=== PATIENT | female | born 1940 | race Two or more races ===

== ENCOUNTER 2016-10-31 12:41 | Inpatient (IN) | payer MEDICAID ==
[~2016-10-31] VITALS: Ht 157.5 cm; Wt 61.2 kg
[~2016-10-31 12:41] MED LIST: ASPI81TA2 PO; ATEN-170; BISO5TAB2 PO; LISI1TAB11 PO; PANT40TA2 PO
[2016-10-31 13:22] LABS: BASOPHILS # (AUTO) 0.1 /CMM (0.0-0.2); DIFF TOTAL % 100 %; EOSINOPHILS # (AUTO) 0.1 /CMM (0.0-0.7); EOSINOPHILS % (AUTO) 0.6 % (0.0-6.0); HEMATOCRIT 35 % (33-45); HEMOGLOBIN 11.7 g/dL (11.5-14.8); LYMPHOCYTES # (AUTO) 3.5 /CMM (0.8-4.8); LYMPHOCYTES % (AUTO) 39.2 % (20.0-44.0); MEAN CORPUSCULAR HEMOGLOBIN 30 PG (26.0-33.0); MEAN CORPUSCULAR HGB CONC 34 g/dl (31.0-36.0); MEAN CORPUSCULAR VOLUME 88 fL (82-100); MONOCYTES # (AUTO) 0.6 /CMM (0.1-1.30); MONOCYTES % (AUTO) 6.6 % (2.0-12.0); NEUTROPHILS # (AUTO) 4.7 /CMM (1.8-8.9); NEUTROPHILS % (AUTO) 52.6 % (43.0-81.0); PLATELET COUNT (AUTO) 295 /CMM (150-450); RED BLOOD CELL COUNT(AUTO) 3.94 MIL/uL (4.0-5.2)
[2016-10-31 13:36] LABS: INR 0.95 (0.87-1.13)
[2016-10-31 13:37] LABS: ALBUMIN 3.6 g/dL (3.4-5.0); BILIRUBIN,DIRECT 0.1 mg/dL (0.0-0.2); BILIRUBIN,TOTAL 0.4 mg/dL (0.2-1.0); CALCIUM, SERUM 9.2 mg/dL (8.5-10.1); CREATININE 0.9 mg/dL (0.6-1.3); INDIRECT BILIRUBIN 0.3 mg/dL (0.0-1.1); POTASSIUM 3.6 mmol/L (3.5-5.1); TOTAL PROTEIN, SERUM 7.5 g/dL (6.4-8.2)
[2016-10-31] MEDS ORDERED: ONDANSETRON HCL/PF 4 MG/2 ML VIAL ONE (13:57)
[2016-10-31] MEDS ORDERED: ONDANSETRON HCL/PF 4 MG/2 ML VIAL IV ONE (14:00)
[2016-10-31 14:16] LABS: KETONES,URINE Negative (NEGATIVE); LEUKOCYTE ESTERASE ,URINE Large (NEGATIVE); PH,URINE 6.5 (5.0-8.0)
[2016-10-31 14:24] LABS: ADD UA MICROSCOPIC YES
[2016-10-31 14:28] LABS: ADD URINE CULTURE NO
[2016-10-31 15:21] LABS: KETONES,URINE Negative (NEGATIVE); LEUKOCYTE ESTERASE ,URINE Negative (NEGATIVE); PH,URINE 5.5 (5.0-8.0)
[2016-10-31 15:33] LABS: ADD UA MICROSCOPIC YES
[2016-10-31 15:43] LABS: ADD URINE CULTURE NO; WBC,URINE 0-2 /HPF (0-3)
[2016-10-31 16:00] VITALS: BP 142/71
[2016-10-31] MEDS ORDERED: ASPIRIN 325 MG TABLET PO ONE (16:00)
[2016-10-31] MEDS ORDERED: UNK CHOLESTEROL MED (16:09)
[2016-10-31] MEDS ORDERED: ASPIRIN 325 MG TABLET ONE (16:09)
[2016-10-31] MEDS ORDERED: ENAL5TAB PO (16:09)
[2016-10-31] MEDS ORDERED: ASPI81TA2 PO (16:09)
[2016-10-31 17:25] VITALS: BP 142/71
[2016-10-31] MEDS ORDERED: ACETAMINOPHEN 325 MG TABLET PO PRN (17:30)
[2016-10-31] MEDS ORDERED: ZOLPIDEM TARTRATE 5 MG TABLET PO PRN (17:30)
[2016-10-31] MEDS ORDERED: MAG HYDROX/AL HYDROX/SIMETH 30 ML UDC PO PRN (17:30)
[2016-10-31] MEDS ORDERED: HYDROCODONE/APAP 5/325MG 1 EACH TABLET PO PRN (17:30)
[2016-10-31] MEDS ORDERED: Z GUARD REMEDY 2 OZ OINT TP PRN (17:30)
[2016-10-31] MEDS ORDERED: ONDANSETRON HCL/PF 4 MG/2 ML VIAL IVP PRN (17:30)
[2016-10-31] MEDS ORDERED: MAGNESIUM HYDROXIDE 30 ML UDC PO PRN (17:30)
[2016-10-31 17:41] LABS: THYROID STIMULATING HORMONE 1.378 uIU/mL (0.358-3.74)
[2016-10-31] MEDS: POTASSIUM CHLORIDE 20 MEQ TAB.PRT.SR PO SCH ×3 (17:49→21:05)
[2016-10-31] MEDS ORDERED: IV SET PRIMARY PUMP SET 1 EA INFUS.SET MC ONE (18:03)
[2016-10-31] MEDS: IV NS 0.9% 1,000 ML IV PRN (18:40)
[2016-10-31 18:53] LABS: PHOSPHORUS 3.3 mg/dL (2.5-4.9)
[2016-10-31 20:00] VITALS: BP 133/78
[2016-10-31 20:14] VITALS: BP 133/78
[2016-10-31] MEDS: CARVEDILOL 6.25 MG TABLET PO SCH (21:04)
[2016-10-31] MEDS: ENOXAPARIN SODIUM 40 MG/0.4 ML DISP.SYRIN SQ SCH (21:10)
[2016-11-01] VITALS (9 sets, daily range): BP systolic 109–165; BP diastolic 58–73
[2016-11-01] MEDS: IV NS 0.9% 1,000 ML IV PRN (04:35)
[2016-11-01 06:56] LABS: BASOPHILS # (AUTO) 0.1 /CMM (0.0-0.2); BASOPHILS % (AUTO) 0.7 % (0.0-2.0); DIFF TOTAL % 100 %; EOSINOPHILS % (AUTO) 0.5 % (0.0-6.0); HEMATOCRIT 30 % (33-45); HEMOGLOBIN 10.1 g/dL (11.5-14.8); LYMPHOCYTES % (AUTO) 38.1 % (20.0-44.0); MEAN CORPUSCULAR HEMOGLOBIN 29 PG (26.0-33.0); MEAN CORPUSCULAR HGB CONC 33 g/dl (31.0-36.0); MEAN CORPUSCULAR VOLUME 88 fL (82-100); MONOCYTES # (AUTO) 0.7 /CMM (0.1-1.30); MONOCYTES % (AUTO) 8.4 % (2.0-12.0); NEUTROPHILS # (AUTO) 4.1 /CMM (1.8-8.9); NEUTROPHILS % (AUTO) 52.3 % (43.0-81.0); PLATELET COUNT (AUTO) 265 /CMM (150-450); RED BLOOD CELL COUNT(AUTO) 3.44 MIL/uL (4.0-5.2); WHITE BLOOD COUNT (AUTO) 7.8 K/uL (4.3-11.0)
[2016-11-01 07:07] LABS: TROPONIN I < 0.017 ng/mL (0.00-0.056)
[2016-11-01 07:10] LABS: ALANINE AMINOTRANSFERASE 15 U/L (12-78); ALBUMIN 2.9 g/dL (3.4-5.0); ANION GAP 11 (5-14); ASPARTATE AMINOTRANSFERASE 11 U/L (15-37); BILIRUBIN,TOTAL 0.5 mg/dL (0.2-1.0); CALCIUM, SERUM 8.8 mg/dL (8.5-10.1); CARBON DIOXIDE 26 mmol/L (21-32); CHLORIDE 109 mmol/L (98-107); CREATININE 0.9 mg/dL (0.6-1.3); GLUCOSE 92 mg/dL (74-106); PHOSPHORUS 3.5 mg/dL (2.5-4.9); POTASSIUM 4.2 mmol/L (3.5-5.1); SODIUM SERUM 142 mmol/L (136-145); TOTAL PROTEIN, SERUM 6.3 g/dL (6.4-8.2); UREA NITROGEN, BLOOD 16 mg/dL (7-18)
[2016-11-01] MEDS: PANTOPRAZOLE 40 MG TABLET.DR PO SCH (08:17)
[2016-11-01] MEDS: ATORVASTATIN 10 MG TABLET PO SCH (08:17)
[2016-11-01] MEDS: CARVEDILOL 6.25 MG TABLET PO SCH ×2 (08:18→22:00)
[2016-11-01] MEDS: ASPIRIN 81 MG TAB.CHEW PO SCH (08:18)
[2016-11-01] MEDS: ENALAPRIL MALEATE (5 MG) 5 MG TABLET PO SCH (08:28)
[2016-11-01] MEDS ORDERED: PANTOPRAZOLE 40 MG/PACK PACK NG SCH (09:00)
[2016-11-01] MEDS ORDERED: ASPIRIN 81 MG TAB.CHEW PO SCH (09:00)
[2016-11-01] MEDS: ENOXAPARIN SODIUM 40 MG/0.4 ML DISP.SYRIN SQ SCH (22:03)
[2016-11-02] VITALS: BP 115/60
[2016-11-02 08:00] VITALS: BP 155/74
[2016-11-02] MEDS ORDERED: REGADENOSON 0.4 MG/5 ML DISP.SYRIN IVP ONE (08:00)
[2016-11-02 08:02] VITALS: BP 155/74
[2016-11-02] MEDS: ASPIRIN 81 MG TAB.CHEW PO SCH (12:24)
[2016-11-02] MEDS: PANTOPRAZOLE 40 MG TABLET.DR PO SCH (12:24)
[2016-11-02] MEDS: ATORVASTATIN 10 MG TABLET PO SCH (12:24)
[2016-11-02 12:28] VITALS: BP 138/72
[2016-11-02] MEDS: ENALAPRIL MALEATE (5 MG) 5 MG TABLET PO SCH (12:28)
[2016-11-02] MEDS: CARVEDILOL 6.25 MG TABLET PO SCH (12:28)
[2016-11-02] MEDS ORDERED: CARV6.252 PO (14:32)
[2016-11-02] MEDS ORDERED: ATOR10TA PO (14:32)
== END 2016-11-02 15:15 | disposition home or self-care (01) | DRG 203 ==
LOC: ER 12:43 → TELE 16:31 → MED 11-02 05:08
DX: M94.0 Chondrocostal junction syndrome [Tietze] (principal); N17.0 Acute kidney failure with tubular necrosis; I24.9 Acute ischemic heart disease, unspecified; I10 Essential (primary) hypertension; K21.9 Gastro-esophageal reflux disease without esophagitis; K44.9 Diaphragmatic hernia without obstruction or gangrene; Z79.82 Long term (current) use of aspirin; D64.9 Anemia, unspecified; E78.5 Hyperlipidemia, unspecified
CPT/HCPCS: 36415; 71010-TC; 80048-TC; 80053-TC; 80061-TC; 80076-TC; 81000-TC; 82306; 82728-TC; 83540-TC; 83690-TC; 83735-TC; 84100-TC; 84439-TC; 84443-TC; 84484-TC; 85025-TC; 85730-TC; 93307-TC; A4606; A9502; J1650; J2405; J7030; Z7610

== ENCOUNTER 2017-02-01 09:52 | Emergency (ER) | payer MEDICAID ==
[~2017-02-01] VITALS: Ht 137.2 cm; Wt 53.5 kg
[~2017-02-01 09:52] MED LIST changes: -ATEN-170; +ATOR10TA PO; -BISO5TAB2 PO; +CARV6.252 PO; +ENAL5TAB PO; -LISI1TAB11 PO; -PANT40TA2 PO
--- NOTE | 2017-02-01 09:52 | NUR ---
BIB FAMILY C/O R KNEE PAIN AND SWELLING X 1 MONTH, NO FALL OR INJURY. NAD NOTED. SON AT BEDSIDE. VSS. RR EVEN AND UNLABORED. MD AT BEDSIDE FOR EVAL.
[2017-02-01] MEDS ORDERED: ACETAMINOPHEN ES 500 MG TABLET ONE (10:13)
[2017-02-01] MEDS ORDERED: TRAMADOL HCL 50 MG TABLET ONE (10:13)
[2017-02-01] MEDS ORDERED: ACETAMINOPHEN ES 500 MG TABLET PO ONE (10:30)
[2017-02-01] MEDS ORDERED: TRAMADOL HCL 50 MG TABLET PO ONE (10:30)
--- NOTE | 2017-02-01 11:51 | NUR ---
Patient discharged to home in stable condition. Written and verbal after care instructions given. Patient verbalizes understanding of instruction.
[2017-02-01 11:52] VITALS: BP 142/78
== END 2017-02-01 11:53 | disposition home or self-care (01) ==
LOC: ER 09:53
DX: M25.561 Pain in right knee (principal); I10 Essential (primary) hypertension; Z79.82 Long term (current) use of aspirin
CPT/HCPCS: 73564-TC; A4606; Z7610

== ENCOUNTER 2020-03-07 14:42 | Emergency (ER) | payer MEDICAID ==
[~2020-03-07] VITALS: Ht 157.5 cm; Wt 58.1 kg
[~2020-03-07 14:42] MED LIST changes: +ASPI-1169 PO; -ASPI81TA2 PO
--- NOTE | 2020-03-07 14:45 | NUR ---
MELINDA WILKINSON 89[facility] from Home "Been having high BP reading x5days.". On room air, breathing evenly and unlabored. connected to the monitor and pulse ox. kept comfortable, will continue to monitor accordingly.
[2020-03-07] MEDS ORDERED: CLONIDINE HCL 0.1 MG TABLET PO ONE ×2 (15:00→16:00)
[2020-03-07] MEDS ORDERED: IBUPROFEN 600 MG TABLET PO ONE ×2 (15:00→15:05)
[2020-03-07] MEDS ORDERED: CLONIDINE HCL 0.1 MG TABLET ONE ×2 (15:05→15:43)
[2020-03-07 18:38] VITALS: BP 146/81
--- NOTE | 2020-03-07 18:38 | NUR ---
Patient discharged to home in stable condition. Written and verbal after care instructions given. Patient verbalizes understanding of instruction.
== END 2020-03-07 18:38 | disposition home or self-care (01) ==
LOC: ER 14:48
DX: I10 Essential (primary) hypertension (principal); Z79.82 Long term (current) use of aspirin; Z79.899 Other long term (current) drug therapy

== ENCOUNTER 2020-03-12 08:05 | Emergency (ER) | payer MEDICAID ==
[~2020-03-12] VITALS: Ht 152.4 cm; Wt 57.6 kg
--- NOTE | 2020-03-12 08:05 | NUR ---
PT BIB FAMILY C/O DIZZINESS AND HEADACHE. PT IS AAOX3 [place] SPEAKING ONLY, NOT IN RESPIRATORY DISTRESS, HOOKED TO SUPERVISOR OFFSET PLATE PREPARATION, KEPT RESTED AND COMFORTABLE. WILL CONTINUE TO MONITOR.
--- NOTE | 2020-03-12 08:20 | NUR ---
friend abad left contact # [phone]
--- NOTE | 2020-03-12 08:25 | NUR ---
PT IV LINE ESTABLISHED BLOOD DRAWN AND SENT TO LAB.
--- NOTE | 2020-03-12 08:30 | NUR ---
SEEN AND EXAMINED BY .
[2020-03-12] MEDS ORDERED: LATA2.5D7 OP (08:34)
[2020-03-12] MEDS ORDERED: CLON0.1T PO (08:34)
[2020-03-12] MEDS ORDERED: CHOL20004 PO (08:34)
[2020-03-12] MEDS ORDERED: MIRT7.5T10 PO (08:34)
[2020-03-12] MEDS ORDERED: SIMV-46 PO (08:34)
[2020-03-12] MEDS ORDERED: OMEP20CA15 PO (08:34)
[2020-03-12] MEDS ORDERED: ASPI-1152 PO (08:34)
[2020-03-12] MEDS ORDERED: LOSA50TA39 PO (08:34)
--- NOTE | 2020-03-12 08:58 | NUR ---
URINE SPECIMEN COLLECTED AND SENT TO LAB.
[2020-03-12 09:15] LABS: CALCIUM, SERUM 9.5 mg/dL (8.5-10.1); CARBON DIOXIDE 30 mmol/L (21-32); CHLORIDE 97 mmol/L (98-107); GLUCOSE 106 mg/dL (74-106); POTASSIUM 4.2 mmol/L (3.5-5.1); SODIUM SERUM 133 mmol/L (136-145); UREA NITROGEN, BLOOD 10 mg/dL (7-18)
[2020-03-12 09:21] LABS: ALANINE AMINOTRANSFERASE 16 U/L (12-78); ALBUMIN 3.6 g/dL (3.4-5.0); ALKALINE PHOSPHATASE 94 U/L (46-116); ASPARTATE AMINOTRANSFERASE 19 U/L (15-37); BILIRUBIN,DIRECT 0.1 mg/dL (0.0-0.2); BILIRUBIN,TOTAL 0.5 mg/dL (0.2-1.0); TOTAL PROTEIN, SERUM 7.9 g/dL (6.4-8.2)
[2020-03-12 09:35] LABS: APPEARANCE,URINE CLEAR (CLEAR); BILIRUBIN,URINE NEGATIVE (NEGATIVE); BLOOD, URINE TRACE-INTA Ery/uL (NEGATIVE); COLOR,URINE YELLOW (YELLOW); KETONES,URINE NEGATIVE (NEGATIVE); LEUKOCYTE ESTERASE ,URINE LARGE (NEGATIVE); NITRITE, URINE NEGATIVE (NEGATIVE); PROTEIN,URINE NEGATIVE (NEGATIVE); UGLUCOSE NEGATIVE (NEGATIVE); UROBILINOGEN,URINE 0.2 EU/dL (0.2)
[2020-03-12 09:42] LABS: BASOPHILS % (AUTO) 0.5 % (0.0-2.0); EOSINOPHILS % (AUTO) 0.9 % (0.0-6.0); HEMATOCRIT 38 % (33-45); HEMOGLOBIN 12.7 g/dL (11.5-14.8); MEAN CORPUSCULAR HGB CONC 33 g/dl (31.0-36.0); MEAN CORPUSCULAR VOLUME 89 fL (82-100); MONOCYTES # (AUTO) 0.7 /CMM (0.1-1.30); MONOCYTES % (AUTO) 9.4 % (2.0-12.0); NEUTROPHILS # (AUTO) 3.2 /CMM (1.8-8.9); NEUTROPHILS % (AUTO) 46.2 % (43.0-81.0); PLATELET COUNT (AUTO) 325 /CMM (150-450); RED BLOOD CELL COUNT(AUTO) 4.27 MIL/uL (4.0-5.2); WHITE BLOOD COUNT (AUTO) 6.9 K/uL (4.3-11.0)
[2020-03-12 09:52] LABS: BACTERIA,URINE Moderate /HPF (None Seen); SQUAMOUS EPITHELIAL CELL,UR Moderate /HPF (None Seen)
--- NOTE | 2020-03-12 10:10 | NUR ---
MINGO WAS CONTACTED SHE WILL BE HERE IN 40 MINS.
--- NOTE | 2020-03-12 10:22 | NUR ---
IV removed. Catheter intact and site benign. Pressure and 4x4 applied to site. No bleeding noted. Patient discharged to home in stable condition. Written and verbal after care instructions given. Patient verbalizes understanding of instruction.
[2020-03-12 10:23] VITALS: BP 149/88
== END 2020-03-12 10:24 | disposition home or self-care (01) ==
LOC: ER 08:05
DX: R42 Dizziness and giddiness (principal); N39.0 Urinary tract infection, site not specified; I10 Essential (primary) hypertension; Z79.899 Other long term (current) drug therapy; Z79.82 Long term (current) use of aspirin
CPT/HCPCS: 36415; 70450-TC; 71045-TC; 80048-TC; 80076-TC; 81000-TC; 84484-TC; 85025-TC; 85730-TC; 87086-TC

== ENCOUNTER 2022-05-12 13:59 | Emergency (ER) | payer MEDICAID, OTHER ==
[~2022-05-12] VITALS: Ht 152.4 cm; Wt 43.1 kg
[~2022-05-12 13:59] MED LIST changes: -ASPI-1169 PO; +ASPI-1420 PO; -ATOR10TA PO; -CARV6.252 PO; +CHOL200010 PO; +CLON0.1T PO; -ENAL5TAB PO; +LATA2.5D15 OP; +LOSA50TA39 PO; +MIRT7.5T10 PO; +OMEP20CA15 PO; +SIMV-46 PO
--- NOTE | 2022-05-12 14:16 | NUR ---
To ER bed 7, BIB Family "She has been having HBP last 4days. Taking meds", aaox3, breathing even and non labored, connected to monitor
[2022-05-12] MEDS ORDERED: CARV6.252 PO (14:35)
[2022-05-12] MEDS ORDERED: CLONIDINE HCL 0.1 MG TABLET PO ONE (15:00)
[2022-05-12] MEDS ORDERED: CARVEDILOL 6.25 MG TABLET PO ONE (15:00)
[2022-05-12] MEDS ORDERED: CARVEDILOL 12.5 MG TABLET ONE (15:22)
[2022-05-12] MEDS ORDERED: CLONIDINE HCL 0.1 MG TABLET ONE (15:22)
--- NOTE | 2022-05-12 16:21 | NUR ---
Patient discharged to home in stable condition. Written and verbal after care instructions given. Patient verbalizes understanding of instruction.
[2022-05-12 16:30] VITALS: BP 136/68
== END 2022-05-12 16:30 | disposition home or self-care (01) ==
LOC: ER 14:05
DX: I10 Essential (primary) hypertension (principal); Z79.899 Other long term (current) drug therapy

== ENCOUNTER 2022-05-23 12:51 | Emergency (ER) | payer MEDICAID ==
[~2022-05-23] VITALS: Ht 152.4 cm; Wt 43.1 kg
[~2022-05-23 12:51] MED LIST changes: -ASPI-1420 PO; +CARV6.252 PO; -CHOL200010 PO; -LATA2.5D15 OP; -MIRT7.5T10 PO; -OMEP20CA15 PO; -SIMV-46 PO
[2022-05-23] MEDS ORDERED: ONDANSETRON HCL/PF 4 MG/2 ML VIAL ONE (13:10)
[2022-05-23 13:23] LABS: BASOPHILS % (AUTO) 0.3 % (0.0-2.0); EOSINOPHILS % (AUTO) 0.2 % (0.0-6.0); HEMATOCRIT 39 % (33-45); HEMOGLOBIN 13.1 g/dL (11.5-14.8); LYMPHOCYTES % (AUTO) 20.3 % (20.0-44.0); MEAN CORPUSCULAR HGB CONC 34 g/dl (31.0-36.0); MEAN CORPUSCULAR VOLUME 87 fL (82-100); MONOCYTES # (AUTO) 0.6 K/uL (0.1-1.30); MONOCYTES % (AUTO) 5.8 % (2.0-12.0); NEUTROPHILS # (AUTO) 7.1 K/uL (1.8-8.9); NEUTROPHILS % (AUTO) 73.4 % (43.0-81.0); PLATELET COUNT (AUTO) 302 K/uL (150-450); RED BLOOD CELL COUNT(AUTO) 4.43 MIL/uL (4.0-5.2); WHITE BLOOD COUNT (AUTO) 9.7 K/uL (4.3-11.0)
[2022-05-23] MEDS ORDERED: LATA2.5D15 EACHEYE (13:30)
[2022-05-23] MEDS ORDERED: ONDANSETRON HCL/PF 4 MG/2 ML VIAL IVP ONE (13:30)
[2022-05-23] MEDS ORDERED: AMLO-213 PO (13:30)
[2022-05-23] MEDS ORDERED: LOSA1TAB36 PO (13:30)
[2022-05-23] MEDS ORDERED: OMEP20CA15 PO (13:30)
[2022-05-23 13:36] LABS: ALANINE AMINOTRANSFERASE 15 U/L (12-78); ALBUMIN 3.9 g/dL (3.4-5.0); ALKALINE PHOSPHATASE 82 U/L (46-116); ASPARTATE AMINOTRANSFERASE 17 U/L (15-37); BILIRUBIN,DIRECT 0.2 mg/dL (0.0-0.2); BILIRUBIN,TOTAL 0.7 mg/dL (0.2-1.0); CALCIUM, SERUM 9.7 mg/dL (8.5-10.1); CARBON DIOXIDE 33 mmol/L (21-32); CHLORIDE 89 mmol/L (98-107); CREATININE 0.9 mg/dL (0.6-1.3); GLUCOSE 103 mg/dL (74-106); LIPASE 90 U/L (73-393); POTASSIUM 3.5 mmol/L (3.5-5.1); SODIUM SERUM 128 mmol/L (136-145); TOTAL PROTEIN, SERUM 8.4 g/dL (6.4-8.2); UREA NITROGEN, BLOOD 8 mg/dL (7-18)
[2022-05-23 15:46] LABS: BILIRUBIN,URINE NEGATIVE (NEGATIVE); COLOR,URINE YELLOW (YELLOW); LEUKOCYTE ESTERASE ,URINE NEGATIVE (NEGATIVE); NITRITE, URINE NEGATIVE (NEGATIVE); PROTEIN,URINE NEGATIVE (NEGATIVE); UGLUCOSE NEGATIVE (NEGATIVE); UROBILINOGEN,URINE 0.2 EU/dL (0.2)
[2022-05-23 17:19] LABS: BACTERIA,URINE RARE /HPF (None Seen); SQUAMOUS EPITHELIAL CELL,UR 0-2 /HPF (None Seen); WBC,URINE 0-2 /HPF (0-3)
[2022-05-23 21:13] VITALS: BP 146/81
== END 2022-05-23 22:00 | disposition short-term general hospital (02) ==
LOC: ER 12:54
DX: R42 Dizziness and giddiness (principal); R07.9 Chest pain, unspecified; I10 Essential (primary) hypertension; Z79.899 Other long term (current) drug therapy; Z20.822 Contact with and (suspected) exposure to COVID-19
CPT/HCPCS: 36415; 70450-TC; 71045-TC; 80048-TC; 80076-TC; 81001; 83690-TC; 84484-TC; 85025-TC; C9803; J2405

== ENCOUNTER 2023-04-04 17:12 | Inpatient (IN) | payer MEDICAID ==
[~2023-04-04] VITALS: Ht 147.3 cm; Wt 51.3 kg
[~2023-04-04 17:12] MED LIST changes: +AMLO-213 PO; +LATA2.5D15 EACHEYE; +LOSA1TAB36 PO; -LOSA50TA39 PO; +OMEP20CA15 PO
[2023-04-04 17:58] LABS: BASOPHILS # (AUTO) 0.1 K/uL (0.0-0.2); BASOPHILS % (AUTO) 0.8 % (0.0-2.0); EOSINOPHILS % (AUTO) 0.5 % (0.0-6.0); HEMATOCRIT 36 % (33-45); LYMPHOCYTES # (AUTO) 2.2 K/uL (0.8-4.8); LYMPHOCYTES % (AUTO) 32.5 % (20.0-44.0); MEAN CORPUSCULAR HEMOGLOBIN 30 PG (26.0-33.0); MEAN CORPUSCULAR HGB CONC 34 g/dl (31.0-36.0); MEAN CORPUSCULAR VOLUME 89 fL (82-100); MONOCYTES # (AUTO) 0.6 K/uL (0.1-1.30); MONOCYTES % (AUTO) 8.4 % (2.0-12.0); NEUTROPHILS # (AUTO) 3.9 K/uL (1.8-8.9); NEUTROPHILS % (AUTO) 57.8 % (43.0-81.0); PLATELET COUNT (AUTO) 309 K/uL (150-450); RED BLOOD CELL COUNT(AUTO) 3.98 MIL/uL (4.0-5.2); RED CELL DISTRIBUTION WIDTH 13.1 % (11.5-15.0); WHITE BLOOD COUNT (AUTO) 6.7 K/uL (4.3-11.0)
[2023-04-04] MEDS ORDERED: LOSA25TA27 PO (18:03)
[2023-04-04] MEDS ORDERED: TRAZ-182 PO (18:03)
[2023-04-04] MEDS ORDERED: ROSU10TA29 PO (18:03)
[2023-04-04 18:24] LABS: CALCIUM, SERUM 9.4 mg/dL (8.5-10.1); CARBON DIOXIDE 28 mmol/L (21-32); CHLORIDE 99 mmol/L (98-107); CREATININE 0.8 mg/dL (0.6-1.3); GLUCOSE 112 mg/dL (74-106); POTASSIUM 4.1 mmol/L (3.5-5.1); SODIUM SERUM 135 mmol/L (136-145); UREA NITROGEN, BLOOD 15 mg/dL (7-18)
[2023-04-04] MEDS ORDERED: CHOL100043 PO (18:27)
[2023-04-04] MEDS ORDERED: MAGN400T26 PO (18:27)
[2023-04-04] MEDS ORDERED: POTA99TA14 PO (18:27)
[2023-04-04 18:35] LABS: ALANINE AMINOTRANSFERASE 13 U/L (12-78); ALBUMIN 3.7 g/dL (3.4-5.0); ALKALINE PHOSPHATASE 80 U/L (46-116); ASPARTATE AMINOTRANSFERASE 14 U/L (15-37); BILIRUBIN,DIRECT 0.1 mg/dL (0.0-0.2); BILIRUBIN,TOTAL 0.3 mg/dL (0.2-1.0); LIPASE 108 U/L (73-393); NT-PRO BNP 149 pg/mL (0-125); TOTAL PROTEIN, SERUM 7.9 g/dL (6.4-8.2)
[2023-04-04 19:22] LABS: APPEARANCE,URINE CLEAR (CLEAR); BILIRUBIN,URINE NEGATIVE (NEGATIVE); BLOOD, URINE TRACE-INTA Ery/uL (NEGATIVE); COLOR,URINE YELLOW (YELLOW); KETONES,URINE NEGATIVE (NEGATIVE); LEUKOCYTE ESTERASE ,URINE NEGATIVE (NEGATIVE); NITRITE, URINE NEGATIVE (NEGATIVE); PROTEIN,URINE NEGATIVE (NEGATIVE); UGLUCOSE NEGATIVE (NEGATIVE); UROBILINOGEN,URINE 0.2 EU/dL (0.2)
[2023-04-04 20:21] LABS: ADD URINE CULTURE NO; BACTERIA,URINE Few /HPF (None Seen); RBC,URINE 0-2 /HPF (0-2); WBC,URINE NONE SEEN /HPF (0-3)
[2023-04-04] MEDS ORDERED: ACETAMINOPHEN 325 MG TABLET PO PRN (23:00)
[2023-04-04] MEDS ORDERED: ONDANSETRON HCL/PF 4 MG/2 ML VIAL IVP PRN (23:00)
[2023-04-04] MEDS ORDERED: CARVEDILOL 12.5 MG TABLET PO ONE (23:30)
[2023-04-04] MEDS: TRAZODONE 50 MG TABLET PO SCH (23:41)
[2023-04-04 23:43] VITALS: BP 151/71; TEMP 98.5; O2SAT 94
[2023-04-05] VITALS (7 sets, daily range): BP systolic 100–137; BP diastolic 54–68; TEMP 97.5–98.8; O2SAT 94–95
[2023-04-05] MEDS ORDERED: LATANOPROST EYE DROP 0.005% 2.5 ML BOTTLE ONE (00:32)
[2023-04-05] MEDS: IV NS 0.9% 1,000 ML IV PRN ×2 (00:57→14:11)
[2023-04-05] MEDS: LATANOPROST EYE DROP 0.005% 2.5 ML BOTTLE EACHEYE SCH ×2 (01:19→21:08)
[2023-04-05 05:52] LABS: BASOPHILS # (AUTO) 0.1 K/uL (0.0-0.2); BASOPHILS % (AUTO) 0.8 % (0.0-2.0); EOSINOPHILS # (AUTO) 0.1 K/uL (0.0-0.7); EOSINOPHILS % (AUTO) 0.8 % (0.0-6.0); HEMATOCRIT 33 % (33-45); HEMOGLOBIN 11.2 g/dL (11.5-14.8); LYMPHOCYTES % (AUTO) 44.9 % (20.0-44.0); MEAN CORPUSCULAR HEMOGLOBIN 30 PG (26.0-33.0); MEAN CORPUSCULAR HGB CONC 34 g/dl (31.0-36.0); MEAN CORPUSCULAR VOLUME 89 fL (82-100); MONOCYTES # (AUTO) 0.7 K/uL (0.1-1.30); NEUTROPHILS # (AUTO) 2.9 K/uL (1.8-8.9); NEUTROPHILS % (AUTO) 43.5 % (43.0-81.0); PLATELET COUNT (AUTO) 265 K/uL (150-450); RED BLOOD CELL COUNT(AUTO) 3.73 MIL/uL (4.0-5.2); RED CELL DISTRIBUTION WIDTH 13.5 % (11.5-15.0); WHITE BLOOD COUNT (AUTO) 6.7 K/uL (4.3-11.0)
[2023-04-05 06:16] LABS: CHOLESTEROL 204 mg/dL (<200); HDL CHOLESTEROL 53 mg/dL (40-60); LDL 126 mg/dL (0-99); TRIGLYCERIDES 72 mg/dL (30-150)
[2023-04-05 06:22] LABS: CALCIUM, SERUM 9.7 mg/dL (8.5-10.1); CARBON DIOXIDE 28 mmol/L (21-32); CHLORIDE 102 mmol/L (98-107); CREATININE 0.7 mg/dL (0.6-1.3); GLUCOSE 93 mg/dL (74-106); POTASSIUM 3.4 mmol/L (3.5-5.1); SODIUM SERUM 138 mmol/L (136-145); UREA NITROGEN, BLOOD 11 mg/dL (7-18)
[2023-04-05] MEDS: MAGNESIUM OXIDE 400 MG TABLET PO SCH (09:20)
[2023-04-05] MEDS: CARVEDILOL 6.25 MG TABLET PO SCH ×2 (09:21→20:55)
[2023-04-05] MEDS: AMLODIPINE BESYLATE 5 MG TABLET PO SCH (09:21)
[2023-04-05] MEDS: PANTOPRAZOLE 40 MG TABLET.DR PO SCH (09:22)
[2023-04-05] MEDS: CHOLECALCIFEROL (VITAMIN D 3) 400 UNIT TABLET PO SCH (09:22)
[2023-04-05] MEDS: LOSARTAN POTASSIUM 25 MG TABLET PO SCH (09:22)
[2023-04-05] MEDS ORDERED: POTASSIUM CHLORIDE 20 MEQ TAB.PRT.SR PO SCH (10:30)
[2023-04-05] MEDS: TRAZODONE 50 MG TABLET PO SCH (21:08)
[2023-04-06] MEDS: IV NS 0.9% 1,000 ML IV PRN (02:41)
[2023-04-06 03:30] VITALS: BP 139/75; TEMP 97.8; O2SAT 97
[2023-04-06 06:58] LABS: CALCIUM, SERUM 9.4 mg/dL (8.5-10.1); CREATININE 0.8 mg/dL (0.6-1.3); POTASSIUM 3.6 mmol/L (3.5-5.1)
[2023-04-06 07:00] VITALS: BP 126/65; TEMP 98.2; O2SAT 96
[2023-04-06] MEDS: PANTOPRAZOLE 40 MG TABLET.DR PO SCH (08:05)
[2023-04-06] MEDS: MAGNESIUM OXIDE 400 MG TABLET PO SCH (08:05)
[2023-04-06] MEDS: CHOLECALCIFEROL (VITAMIN D 3) 400 UNIT TABLET PO SCH (08:05)
[2023-04-06] MEDS: CARVEDILOL 6.25 MG TABLET PO SCH (08:05)
[2023-04-06 08:06] VITALS: BP 135/68
[2023-04-06] MEDS: LOSARTAN POTASSIUM 25 MG TABLET PO SCH (08:06)
[2023-04-06] MEDS: AMLODIPINE BESYLATE 5 MG TABLET PO SCH (08:06)
== END 2023-04-06 13:41 | disposition home or self-care (01) | DRG 203 ==
LOC: ER 17:15 → TELE 22:31
PROVIDERS: ADMIT Nurse Practitioner Acute Care; ATTEND Internal Medicine
DX: M94.0 Chondrocostal junction syndrome [Tietze] (principal); E87.1 Hypo-osmolality and hyponatremia; K29.70 Gastritis, unspecified, without bleeding; E86.1 Hypovolemia; E78.5 Hyperlipidemia, unspecified; I10 Essential (primary) hypertension; R53.1 Weakness; R51.9 Headache, unspecified; Z20.822 Contact with and (suspected) exposure to COVID-19; R07.81 Pleurodynia
CPT/HCPCS: 36415; 70450-TC; 71045-TC; 80048-TC; 80061-TC; 80076-TC; 81001; 83690-TC; 83735-TC; 83880; 84100-TC; 84484-TC; 85025-TC; 87086-TC; 92507-TC; 92526; 93307-TC; 97112-TC; 97116-TC; 97530-TC; 97535-TC; A4223; C9803; G0378; J7030

== ENCOUNTER 2024-03-09 16:16 | Emergency (ER) | payer MEDICAID ==
[~2024-03-09] VITALS: Ht 149.9 cm; Wt 45.4 kg
[~2024-03-09 16:16] MED LIST changes: +CHOL100043 PO; -CLON0.1T PO; -LOSA1TAB36 PO; +LOSA25TA27 PO; +MAGN400T26 PO; +POTA99TA14 PO; +TRAZ-182 PO
[2024-03-09 17:10] LABS: BASOPHILS # (AUTO) 0.1 K/uL (0.0-0.2); BASOPHILS % (AUTO) 0.6 % (0.0-2.0); EOSINOPHILS % (AUTO) 0.3 % (0.0-6.0); HEMATOCRIT 36 % (33-45); HEMOGLOBIN 12.2 g/dL (11.5-14.8); LYMPHOCYTES # (AUTO) 2.6 K/uL (0.8-4.8); LYMPHOCYTES % (AUTO) 30.6 % (20.0-44.0); MEAN CORPUSCULAR HEMOGLOBIN 30 PG (26.0-33.0); MEAN CORPUSCULAR HGB CONC 34 g/dl (31.0-36.0); MEAN CORPUSCULAR VOLUME 88 fL (82-100); MONOCYTES # (AUTO) 0.8 K/uL (0.1-1.30); MONOCYTES % (AUTO) 9.9 % (2.0-12.0); NEUTROPHILS # (AUTO) 4.9 K/uL (1.8-8.9); NEUTROPHILS % (AUTO) 58.6 % (43.0-81.0); PLATELET COUNT (AUTO) 364 K/uL (150-450); RED BLOOD CELL COUNT(AUTO) 4.02 MIL/uL (4.0-5.2); RED CELL DISTRIBUTION WIDTH 13.5 % (11.5-15.0); WHITE BLOOD COUNT (AUTO) 8.4 K/uL (4.3-11.0)
[2024-03-09 17:25] LABS: CALCIUM, SERUM 8.8 mg/dL (8.5-10.1); CARBON DIOXIDE 29 mmol/L (21-32); CHLORIDE 93 mmol/L (98-107); CREATININE 0.7 mg/dL (0.6-1.3); GLUCOSE 107 mg/dL (74-106); SODIUM SERUM 130 mmol/L (136-145); UREA NITROGEN, BLOOD 9 mg/dL (7-18)
[2024-03-09] MEDS ORDERED: FAMOTIDINE (20 MG) 20 MG TABLET ONE (19:08)
[2024-03-09] MEDS ORDERED: AMYL1CAP56 PO (19:08)
[2024-03-09] MEDS: FAMOTIDINE (20 MG) 20 MG TABLET PO ONE (19:12)
[2024-03-09] MEDS ORDERED: ASPIRIN EC 81 MG TABLET.DR PO ONE (21:29)
[2024-03-09] MEDS: ASPIRIN EC 81 MG TABLET.DR PO ONE (21:30)
[2024-03-10 01:38] VITALS: BP 158/72; TEMP 98.2; O2SAT 99
== END 2024-03-10 01:38 | disposition short-term general hospital (02) ==
LOC: ER 16:16
DX: R07.9 Chest pain, unspecified (principal); I10 Essential (primary) hypertension; Z87.19 Personal history of other diseases of the digestive system; Z86.79 Personal history of other diseases of the circulatory system; Z60.2 Problems related to living alone; Z20.822 Contact with and (suspected) exposure to COVID-19
CPT/HCPCS: 36415; 71045-TC; 80048-TC; 84484-TC; 85025-TC